=== PATIENT | male | born 1970 | race Two or more races ===

== ENCOUNTER 2017-11-28 16:12 | Inpatient (IN) | payer BC, OTHER ==
[~2017-11-28] VITALS: Ht 172.1 cm; Wt 117.0 kg
[2017-11-28] MEDS ORDERED: ASPirin 81 mg TAB PO ONE (16:30)
[2017-11-28] MEDS ORDERED: FUROSEMIDE 40 MG/4 ML VIAL IV ONE (17:15)
[2017-11-28] MEDS ORDERED: ALBUTEROL SULF 2.5 MG/0.5ML(0.5%) NEB SOLN NEB ONE (17:15)
[2017-11-28] MEDS ORDERED: IPRATROPIUM BROM 0.5 MG/2.5ML INH SOL NEB ONE (17:15)
[2017-11-28 17:23] LABS: Basophils # (auto) 0 uL; Eosinophils # (auto) 0 uL; Monocytes # (auto) 0.6 uL; White Blood Cell 6.5 10^3/uL (4.4-10.8)
[2017-11-28 17:25] LABS: Basophils % (auto) 0.3 % (0.0-2.0); Eosinophils % (auto) 0.5 % (0.0-7.0); Hemoglobin 18.6 g/dL (13.5-17.5); Lymphocytes # (auto) 0.7 uL; Mean Corpuscular Hemoglobin 22.4 pg (28.0-32.0); Mean Corpuscular Hgb Conc. 30.1 g/dL (32.0-36.0); Mean Corpuscular Volume 74.3 fL (80.0-100.0); Monocytes % (auto) 9.1 % (0.0-12.0); Neutrophils # (auto) 5.2 uL; Neutrophils % (auto) 80.1 % (37.0-80.0); Nucleated Red Blood Cells % 0.4 %; Platelet Count (auto) 87 10^3/uL (140-450); Red Blood Cells 8.33 10^6/uL (4.5-5.90); Red Cell Distribution Width 19.8 % (11.8-14.3)
[2017-11-28 17:28] LABS: Hematocrit 61.9 % (41.0-53.0)
[2017-11-28 17:58] LABS: Alkaline Phosphatase 91 U/L (45-117); Anion Gap 6 (5-15); Aspartate Aminotransferase 28 U/L (15-37); BUN/Creatinine Ratio 9.5; Blood Urea Nitrogen 11 mg/dL (7-18); Carbon Dioxide 36 mmol/L (21-32); Chloride 100 mmol/L (98-107); GFR African American 87 mL/min; GFR Non-African American 72 mL/min; Glucose 73 mg/dL (74-106); Potassium 4.2 mmol/L (3.5-5.1); Sodium 142 mmol/L (136-145)
[2017-11-28 17:59] LABS: Alanine Aminotransferase 27 U/L (16-61); Bilirubin, Total 0.9 mg/dL (0.2-1.0); Calcium 8.3 mg/dL (8.5-10.1)
[2017-11-28 18:00] LABS: Albumin 3.3 g/dL (3.4-5.0)
[2017-11-28] MEDS ORDERED: cloNIDine HCL 0.1 MG TAB PO ONE (18:15)
[2017-11-28 18:25] LABS: INR 1.38 (0.9-1.15); Prothrombin Time 14.5 sec (9.27-12.13)
[2017-11-28] MEDS ORDERED: TEMAZEPAM 15 MG CAP PO PRN (21:00)
[2017-11-28] MEDS ORDERED: MORPHINE SULF INJ 2 MG/ML SYRINGE 1ML IV PRN (21:00)
[2017-11-28] MEDS ORDERED: NITROGLYCERIN 0.4 MG SL TAB SL PRN (21:00)
[2017-11-28] MEDS ORDERED: cloNIDine HCL 0.1 MG TAB PO PRN (21:00)
[2017-11-28] MEDS ORDERED: ACETAMINOPHEN 325 MG TAB PO PRN (21:00)
[2017-11-28] MEDS ORDERED: ALBUTEROL SULF 2.5 MG/0.5ML(0.5%) NEB SOLN NEB PRN (21:00)
[2017-11-28] MEDS ORDERED: ONDANSETRON HCL 4 MG/2 ML VIAL IV PRN (21:00)
[2017-11-28] MEDS ORDERED: HYDROcodone-ACET 5/325MG TAB PO PRN (21:00)
[2017-11-28 21:43] LABS: Cholesterol 119 mg/dL (< 200); HDL Cholesterol 43 mg/dL (40-59); LDL Cholesterol 72 mg/dL (< 100); Triglycerides 133 mg/dL (< 150)
[2017-11-28] MEDS ORDERED: METOPROLOL TARTRATE 25 MG TAB PO ONE (22:15)
[2017-11-28 22:44] VITALS: BP 126/91
[2017-11-28] MEDS: ATORVASTATIN 20 MG TAB PO SCH (22:58)
[2017-11-28] MEDS: FAMOTIDINE 20 MG TAB PO SCH (22:58)
[2017-11-28 23:02] VITALS: BP 130/69
[2017-11-29 05:00] VITALS: BP 139/100
[2017-11-29 06:30] LABS: Basophils # (auto) 0 uL; Basophils % (auto) 0.4 % (0.0-2.0); Eosinophils # (auto) 0 uL; Lymphocytes # (auto) 0.6 uL; Mean Corpuscular Hemoglobin 22.6 pg (28.0-32.0); Mean Corpuscular Hgb Conc. 30.1 g/dL (32.0-36.0); Neutrophils # (auto) 4.7 uL; Red Cell Distribution Width 19.6 % (11.8-14.3)
[2017-11-29 06:33] LABS: Eosinophils % (auto) 0.8 % (0.0-7.0); Hemoglobin 18.5 g/dL (13.5-17.5); Lymphocytes % (auto) 10.7 % (10.0-50.0); Monocytes # (auto) 0.6 uL; Monocytes % (auto) 9.9 % (0.0-12.0); Neutrophils % (auto) 78.2 % (37.0-80.0); Nucleated Red Blood Cells % 0.2 %; Platelet Count (auto) 74 10^3/uL (140-450); Red Blood Cells 8.21 10^6/uL (4.5-5.90)
[2017-11-29 06:45] LABS: Hematocrit 61.6 % (41.0-53.0)
[2017-11-29 07:01] LABS: Potassium 4.2 mmol/L (3.5-5.1)
[2017-11-29 07:07] LABS: Albumin 3.1 g/dL (3.4-5.0); BUN/Creatinine Ratio 13.5; Calcium 8.2 mg/dL (8.5-10.1)
[2017-11-29 07:10] LABS: Bilirubin, Total 0.8 mg/dL (0.2-1.0); Total Protein 6.7 g/dL (6.4-8.2)
[2017-11-29 08:00] VITALS: BP 154/111
[2017-11-29] MEDS: ASPirin 81 mg TAB PO SCH (09:21)
[2017-11-29] MEDS: FUROSEMIDE 40 MG TAB PO SCH (09:21)
[2017-11-29] MEDS: LISINOPRIL 10 MG TAB PO SCH (09:22)
[2017-11-29] MEDS: FAMOTIDINE 20 MG TAB PO SCH ×2 (09:22→23:52)
[2017-11-29] MEDS: METOPROLOL TARTRATE 25 MG TAB PO SCH ×2 (09:22→23:52)
[2017-11-29 12:00] VITALS: BP 143/84
[2017-11-29] MEDS ORDERED: IOHEXOL 350 MG/ML 100ML IJ ONE (12:17)
[2017-11-29 17:00] VITALS: BP 147/107
[2017-11-29 20:00] VITALS: BP 143/84
[2017-11-29 22:00] VITALS: BP 146/86
[2017-11-29] MEDS: ALBUTEROL SULF 2.5 MG/0.5ML(0.5%) NEB SOLN NEB SCH (23:19)
[2017-11-29] MEDS: IPRATROPIUM BROM 0.5 MG/2.5ML INH SOL NEB SCH (23:19)
[2017-11-29] MEDS: ATORVASTATIN 20 MG TAB PO SCH (23:51)
[2017-11-30 05:00] VITALS: BP 145/95
[2017-11-30 05:48] LABS: Basophils # (auto) 0 uL; Eosinophils # (auto) 0 uL; Lymphocytes # (auto) 0.6 uL; Lymphocytes % (auto) 7.7 % (10.0-50.0)
[2017-11-30 05:51] LABS: Basophils % (auto) 0.4 % (0.0-2.0); Eosinophils % (auto) 0.5 % (0.0-7.0); Hemoglobin 18.6 g/dL (13.5-17.5); Mean Corpuscular Hemoglobin 22.4 pg (28.0-32.0); Mean Corpuscular Hgb Conc. 30.2 g/dL (32.0-36.0); Mean Corpuscular Volume 74.1 fL (80.0-100.0); Monocytes # (auto) 0.6 uL; Monocytes % (auto) 7.2 % (0.0-12.0); Neutrophils # (auto) 6.6 uL; Neutrophils % (auto) 84.2 % (37.0-80.0); Nucleated Red Blood Cells % 0.3 %; Platelet Count (auto) 81 10^3/uL (140-450); Red Cell Distribution Width 19.3 % (11.8-14.3); White Blood Cell 7.8 10^3/uL (4.4-10.8)
[2017-11-30] MEDS: IPRATROPIUM BROM 0.5 MG/2.5ML INH SOL NEB SCH ×3 (06:04→18:19)
[2017-11-30] MEDS: ALBUTEROL SULF 2.5 MG/0.5ML(0.5%) NEB SOLN NEB SCH ×3 (06:04→18:19)
[2017-11-30 06:14] LABS: % Iron Saturation 9.9 % (20-55)
[2017-11-30 06:23] LABS: Hematocrit 61.5 % (41.0-53.0)
[2017-11-30 06:27] LABS: Albumin 3.3 g/dL (3.4-5.0); BUN/Creatinine Ratio 16.3; Bilirubin, Total 1.3 mg/dL (0.2-1.0); Calcium 8.4 mg/dL (8.5-10.1); Potassium 4.2 mmol/L (3.5-5.1); Total Protein 7.3 g/dL (6.4-8.2)
[2017-11-30 08:00] VITALS: BP 167/102
[2017-11-30] MEDS: LISINOPRIL 10 MG TAB PO SCH (09:43)
[2017-11-30] MEDS: FAMOTIDINE 20 MG TAB PO SCH ×2 (09:43→21:32)
[2017-11-30] MEDS: ASPirin 81 mg TAB PO SCH (09:43)
[2017-11-30] MEDS: FUROSEMIDE 40 MG TAB PO SCH (09:43)
[2017-11-30] MEDS: METOPROLOL TARTRATE 25 MG TAB PO SCH ×2 (09:43→21:32)
[2017-11-30 11:42] LABS: Hepatitis B Surface Antibody Negative
[2017-11-30 12:00] VITALS: BP 156/115
[2017-11-30 12:58] LABS: Hepatitis B Core IgM Negative
[2017-11-30 12:59] LABS: Hepatitis B Surface Antigen Negative (Negative)
[2017-11-30 17:00] VITALS: BP 156/91
[2017-11-30] MEDS ORDERED: SODIUM CHLORIDE 0.9% 500 ML IV ONE ×2 (17:15)
[2017-11-30] MEDS: ATORVASTATIN 20 MG TAB PO SCH (21:32)
[2017-11-30 22:00] VITALS: BP 148/103
[2017-12-01] MEDS: ALBUTEROL SULF 2.5 MG/0.5ML(0.5%) NEB SOLN NEB SCH ×4 (00:35→18:31)
[2017-12-01] MEDS: IPRATROPIUM BROM 0.5 MG/2.5ML INH SOL NEB SCH ×4 (00:35→18:31)
[2017-12-01 05:38] VITALS: BP 130/85
[2017-12-01 06:02] LABS: Basophils # (auto) 0 uL; Basophils % (auto) 0.3 % (0.0-2.0); Eosinophils # (auto) 0.1 uL; Hemoglobin 16.9 g/dL (13.5-17.5); Lymphocytes # (auto) 0.6 uL; Mean Corpuscular Volume 75.2 fL (80.0-100.0); Neutrophils # (auto) 5.7 uL; White Blood Cell 7.1 10^3/uL (4.4-10.8)
[2017-12-01 06:04] LABS: Eosinophils % (auto) 0.8 % (0.0-7.0); Lymphocytes % (auto) 7.8 % (10.0-50.0); Mean Corpuscular Hemoglobin 22.6 pg (28.0-32.0); Monocytes # (auto) 0.7 uL; Monocytes % (auto) 10.2 % (0.0-12.0); Neutrophils % (auto) 80.9 % (37.0-80.0); Nucleated Red Blood Cells % 0.1 %; Platelet Count (auto) 86 10^3/uL (140-450); Red Blood Cells 7.47 10^6/uL (4.5-5.90); Red Cell Distribution Width 19.1 % (11.8-14.3)
[2017-12-01 06:13] LABS: Hematocrit 56.2 % (41.0-53.0)
[2017-12-01 06:19] LABS: Albumin 2.7 g/dL (3.4-5.0); BUN/Creatinine Ratio 18.5; Bilirubin, Total 1.2 mg/dL (0.2-1.0); Potassium 4.3 mmol/L (3.5-5.1); Total Protein 5.9 g/dL (6.4-8.2)
[2017-12-01 08:00] VITALS: BP 153/67
[2017-12-01 09:00] VITALS: BP 153/67
[2017-12-01] MEDS: LISINOPRIL 10 MG TAB PO SCH (09:44)
[2017-12-01] MEDS: ASPirin 81 mg TAB PO SCH (09:45)
[2017-12-01] MEDS: FUROSEMIDE 40 MG TAB PO SCH (09:45)
[2017-12-01] MEDS: METOPROLOL TARTRATE 25 MG TAB PO SCH ×2 (09:45→23:02)
[2017-12-01] MEDS: FAMOTIDINE 20 MG TAB PO SCH ×2 (09:45→23:02)
[2017-12-01 13:00] VITALS: BP 129/68
[2017-12-01 17:00] VITALS: BP 118/79
[2017-12-01 22:00] VITALS: BP 126/72
[2017-12-01] MEDS: ATORVASTATIN 20 MG TAB PO SCH (23:00)
[2017-12-02] VITALS (7 sets, daily range): BP systolic 126–164; BP diastolic 72–99
[2017-12-02] MEDS: ALBUTEROL SULF 2.5 MG/0.5ML(0.5%) NEB SOLN NEB SCH ×4 (00:41→19:08)
[2017-12-02] MEDS: IPRATROPIUM BROM 0.5 MG/2.5ML INH SOL NEB SCH ×4 (00:41→19:08)
[2017-12-02 05:42] LABS: Basophils # (auto) 0 uL; Eosinophils # (auto) 0.1 uL; Lymphocytes # (auto) 0.5 uL; Lymphocytes % (auto) 7.7 % (10.0-50.0); Mean Corpuscular Volume 74.1 fL (80.0-100.0); Monocytes # (auto) 0.6 uL; Neutrophils # (auto) 5.3 uL; Neutrophils % (auto) 81.2 % (37.0-80.0); Nucleated Red Blood Cells % 0.2 %; White Blood Cell 6.5 10^3/uL (4.4-10.8)
[2017-12-02 05:47] LABS: Basophils % (auto) 0.4 % (0.0-2.0); Eosinophils % (auto) 1.3 % (0.0-7.0); Hematocrit 55.6 % (41.0-53.0); Hemoglobin 16.9 g/dL (13.5-17.5); Mean Corpuscular Hemoglobin 22.5 pg (28.0-32.0); Mean Corpuscular Hgb Conc. 30.4 g/dL (32.0-36.0); Monocytes % (auto) 9.4 % (0.0-12.0); Platelet Count (auto) 88 10^3/uL (140-450); Red Cell Distribution Width 18.8 % (11.8-14.3)
[2017-12-02 06:00] LABS: Albumin 2.9 g/dL (3.4-5.0); Calcium 8.1 mg/dL (8.5-10.1)
[2017-12-02 06:05] LABS: BUN/Creatinine Ratio 14.9; Bilirubin, Total 1.1 mg/dL (0.2-1.0); Total Protein 6.2 g/dL (6.4-8.2)
[2017-12-02] MEDS: LISINOPRIL 10 MG TAB PO SCH (09:26)
[2017-12-02] MEDS: ASPirin 81 mg TAB PO SCH (09:26)
[2017-12-02] MEDS: METOPROLOL TARTRATE 25 MG TAB PO SCH ×2 (09:26→22:04)
[2017-12-02] MEDS: FAMOTIDINE 20 MG TAB PO SCH ×2 (09:26→22:04)
[2017-12-02] MEDS: FUROSEMIDE 40 MG TAB PO SCH (09:27)
[2017-12-02] MEDS: ATORVASTATIN 20 MG TAB PO SCH (22:05)
[2017-12-03] MEDS: IPRATROPIUM BROM 0.5 MG/2.5ML INH SOL NEB SCH ×5 (00:38→23:45)
[2017-12-03] MEDS: ALBUTEROL SULF 2.5 MG/0.5ML(0.5%) NEB SOLN NEB SCH ×5 (00:38→23:45)
[2017-12-03 05:00] VITALS: BP 136/80
[2017-12-03 05:36] LABS: Basophils # (auto) 0 uL; Eosinophils # (auto) 0.1 uL; Lymphocytes # (auto) 0.5 uL; Lymphocytes % (auto) 7.7 % (10.0-50.0); Monocytes # (auto) 0.6 uL; Neutrophils # (auto) 4.8 uL
[2017-12-03 05:40] LABS: Basophils % (auto) 0.2 % (0.0-2.0); Eosinophils % (auto) 1.9 % (0.0-7.0); Hematocrit 55.4 % (41.0-53.0); Hemoglobin 17.1 g/dL (13.5-17.5); Mean Corpuscular Hemoglobin 22.6 pg (28.0-32.0); Mean Corpuscular Hgb Conc. 30.9 g/dL (32.0-36.0); Mean Corpuscular Volume 73.2 fL (80.0-100.0); Monocytes % (auto) 10.2 % (0.0-12.0); Nucleated Red Blood Cells % 0.2 %; Platelet Count (auto) 72 10^3/uL (140-450); Red Blood Cells 7.56 10^6/uL (4.5-5.90); Red Cell Distribution Width 19.6 % (11.8-14.3)
[2017-12-03 05:59] LABS: BUN/Creatinine Ratio 15.3; Bilirubin, Total 1.4 mg/dL (0.2-1.0); Calcium 8.1 mg/dL (8.5-10.1); Total Protein 6.2 g/dL (6.4-8.2)
[2017-12-03 08:00] VITALS: BP 146/105
[2017-12-03 09:44] VITALS: BP 135/104
[2017-12-03] MEDS: FAMOTIDINE 20 MG TAB PO SCH ×2 (09:55→22:22)
[2017-12-03] MEDS: ASPirin 81 mg TAB PO SCH (09:56)
[2017-12-03] MEDS: FUROSEMIDE 40 MG TAB PO SCH (09:56)
[2017-12-03] MEDS: LISINOPRIL 10 MG TAB PO SCH (09:57)
[2017-12-03] MEDS: METOPROLOL TARTRATE 25 MG TAB PO SCH ×2 (09:57→22:22)
[2017-12-03 13:31] VITALS: BP 150/93
[2017-12-03 17:56] VITALS: BP 140/86
[2017-12-03 22:00] VITALS: BP 166/118
[2017-12-03] MEDS: ATORVASTATIN 20 MG TAB PO SCH (22:21)
[2017-12-04 05:00] VITALS: BP 133/74
[2017-12-04] MEDS: IPRATROPIUM BROM 0.5 MG/2.5ML INH SOL NEB SCH ×4 (06:19→23:53)
[2017-12-04] MEDS: ALBUTEROL SULF 2.5 MG/0.5ML(0.5%) NEB SOLN NEB SCH ×4 (06:19→23:54)
[2017-12-04 09:00] VITALS: BP 143/99
[2017-12-04] MEDS: LISINOPRIL 10 MG TAB PO SCH (09:16)
[2017-12-04] MEDS: ASPirin 81 mg TAB PO SCH (09:16)
[2017-12-04] MEDS: FUROSEMIDE 40 MG TAB PO SCH (09:16)
[2017-12-04] MEDS: FAMOTIDINE 20 MG TAB PO SCH ×2 (09:16→21:32)
[2017-12-04] MEDS: METOPROLOL TARTRATE 25 MG TAB PO SCH ×2 (09:17→21:32)
[2017-12-04 13:00] VITALS: BP 136/85
[2017-12-04 17:00] VITALS: BP 131/87
[2017-12-04 21:09] VITALS: BP 131/87
[2017-12-04] MEDS: ATORVASTATIN 20 MG TAB PO SCH (21:32)
[2017-12-04 21:53] VITALS: BP 133/86
[2017-12-05 04:47] VITALS: BP_SYST 136; BP_SYST 138; BP_DIAS 77; BP_DIAS 86
[2017-12-05] MEDS: ALBUTEROL SULF 2.5 MG/0.5ML(0.5%) NEB SOLN NEB SCH ×3 (06:57→18:38)
[2017-12-05] MEDS: IPRATROPIUM BROM 0.5 MG/2.5ML INH SOL NEB SCH ×3 (06:57→18:38)
[2017-12-05 08:00] VITALS: BP 139/86
[2017-12-05] MEDS: FAMOTIDINE 20 MG TAB PO SCH ×2 (09:04→21:14)
[2017-12-05] MEDS: LISINOPRIL 10 MG TAB PO SCH (09:05)
[2017-12-05] MEDS: METOPROLOL TARTRATE 25 MG TAB PO SCH ×2 (09:05→21:13)
[2017-12-05] MEDS: FUROSEMIDE 40 MG TAB PO SCH (09:07)
[2017-12-05] MEDS: ASPirin 81 mg TAB PO SCH (10:00)
[2017-12-05 13:00] VITALS: BP 137/85
[2017-12-05] MEDS ORDERED: LIDOCAINE 2% (LOCAL ANESTH.) PF 5ml SDV ONE (14:28)
[2017-12-05] MEDS ORDERED: IODIXANOL 320MG/ML 100ML BTL IV ONE (14:28)
[2017-12-05] MEDS ORDERED: ANGIOMAX 250 MG VIAL IV ONE (15:13)
[2017-12-05] MEDS ORDERED: fentaNYL CITRATE 100 MCG/2 ML VL ONE (15:13)
[2017-12-05] MEDS ORDERED: MIDAZOLAM HCL 1MG/1ML-2 ML VIAL ONE (15:13)
[2017-12-05] MEDS ORDERED: SODIUM CHL 0.9% 0 ML ONE (15:13)
[2017-12-05] MEDS: ATORVASTATIN 20 MG TAB PO SCH (21:13)
[2017-12-05 21:34] VITALS: BP 104/61
[2017-12-06] MEDS: IPRATROPIUM BROM 0.5 MG/2.5ML INH SOL NEB SCH ×3 (00:41→11:42)
[2017-12-06] MEDS: ALBUTEROL SULF 2.5 MG/0.5ML(0.5%) NEB SOLN NEB SCH ×3 (00:41→11:42)
[2017-12-06 05:04] VITALS: BP 128/74
[2017-12-06 09:16] VITALS: BP 134/88
[2017-12-06] MEDS: FUROSEMIDE 40 MG TAB PO SCH (09:50)
[2017-12-06] MEDS: ASPirin 81 mg TAB PO SCH (09:50)
[2017-12-06] MEDS: LISINOPRIL 10 MG TAB PO SCH (09:51)
[2017-12-06] MEDS: FAMOTIDINE 20 MG TAB PO SCH (09:51)
[2017-12-06] MEDS: METOPROLOL TARTRATE 25 MG TAB PO SCH (09:51)
[2017-12-06 12:12] VITALS: BP 132/78
[2017-12-06 12:35] VITALS: BP 120/72
== END 2017-12-06 16:00 | disposition home or self-care (01) | DRG 286 ==
LOC: ER 16:14 → OVERFLOW 16:15 → TELE-WESTW 22:07
PROVIDERS: ADMIT Nurse Practitioner; ATTEND Family Medicine
PROC: 5A09357 Assistance with Respiratory Ventilation, Less than 24 Consecutive Hours, Continuous Positive Airway Pressure (ICD-10-PCS; 2017-11-29)
PROC: 5A09357 Assistance with Respiratory Ventilation, Less than 24 Consecutive Hours, Continuous Positive Airway Pressure (ICD-10-PCS; 2017-11-29)
PROC: 5A09357 Assistance with Respiratory Ventilation, Less than 24 Consecutive Hours, Continuous Positive Airway Pressure (ICD-10-PCS; 2017-11-29)
PROC: 5A09357 Assistance with Respiratory Ventilation, Less than 24 Consecutive Hours, Continuous Positive Airway Pressure (ICD-10-PCS; 2017-11-29)
PROC: 4A023N8 Measurement of Cardiac Sampling and Pressure, Bilateral, Percutaneous Approach (ICD-10-PCS; principal; 2017-12-05)
PROC: B2111ZZ Fluoroscopy of Multiple Coronary Arteries using Low Osmolar Contrast (ICD-10-PCS; 2017-12-05)
PROC: B2151ZZ Fluoroscopy of Left Heart using Low Osmolar Contrast (ICD-10-PCS; 2017-12-05)
DX: I11.0 Hypertensive heart disease with heart failure (principal); G93.41 Metabolic encephalopathy; J96.21 Acute and chronic respiratory failure with hypoxia; J96.22 Acute and chronic respiratory failure with hypercapnia; D68.9 Coagulation defect, unspecified; Z68.41 Body mass index [BMI] 40.0-44.9, adult; E66.2 Morbid (severe) obesity with alveolar hypoventilation; E87.2 Acidosis; I50.43 Acute on chronic combined systolic (congestive) and diastolic (congestive) heart failure; E78.00 Pure hypercholesterolemia, unspecified; E78.5 Hyperlipidemia, unspecified; I27.20 Pulmonary hypertension, unspecified; D69.6 Thrombocytopenia, unspecified; B19.20 Unspecified viral hepatitis C without hepatic coma; D75.1 Secondary polycythemia; Z82.49 Family history of ischemic heart disease and other diseases of the circulatory system; Z83.3 Family history of diabetes mellitus; Z91.14 Patient's other noncompliance with medication regimen; Z68.39 Body mass index [BMI] 39.0-39.9, adult
CPT/HCPCS: 36415; 36600; 70450; 71046; 74177; 76705; 78582; 80053; 80061; 82105; 82607; 82668; 82805; 82962; 83540; 83550; 83615; 83880; 84484; 85025; 85379; 85610; 85730; 86703; 86705; 86706; 86803; 87340; 87522; 87902; 93005; 93306; 93460; 93970; 94640; 94660; 95819; 96374; 99152; 99195; A6257; J2001; J2250; Q9967